=== PATIENT | female | born 1965 | race Caucasian/White ===

== ENCOUNTER 2018-02-11 06:23 | Emergency (ER) | payer OTHER ==
[2018-02-11] MEDS ORDERED: ACETAMINOPHEN 325 MG TABLET PO ONE (07:32)
[2018-02-11] MEDS ORDERED: CYCLOBENZAPRINE HCL 10 MG TABLET PO ONE (07:32)
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
[2018-02-11 07:51] VITALS: BP 142/83
== END 2018-02-11 07:50 | disposition home or self-care (01) ==
LOC: ER 06:23
DX: M54.2 Cervicalgia (principal); V47.6XXA Car passenger injured in collision with fixed or stationary object in traffic accident, initial encounter; I26.99 Other pulmonary embolism without acute cor pulmonale; I82.409 Acute embolism and thrombosis of unspecified deep veins of unspecified lower extremity; Z79.01 Long term (current) use of anticoagulants
CPT/HCPCS: 99283